=== PATIENT | male | born 1965 | race Caucasian/White ===

== ENCOUNTER 2016-03-25 15:45 | Emergency (ER) | payer OTHER ==
[2016-03-25 16:55] VITALS: BP 134/86
--- NOTE | 2016-03-25 17:10 | UC ---
Respiratory Complaint HPI - HPI Summary HPI Summary: shoveling snow 3 or 4 days ago, afterwards felt a cold coming on. Worsening cough, hurts ribcage to cough. He said "chest pain" on triage, but he says it is pleuritic and more related to coughing. Phlegm is yellow. Sinus congestion. Malaise, fatigue, slept 14 hrs yesterday. Fever today. Smoker. Chronic narcotic use for back pain. 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 - Onset/Duration: Gradual Onset, Lasting Days Timing: Constant Severity Initially: Mild Severity Currently: Mild Character: Sputum Description: - yellow Aggravating Factors: Exertion, Recumbent Position Alleviating Factors: Nothing Associated Signs And Symptoms: Positive: Dyspnea, Fever, Chills, URI, Nasal Congestion, Hoarseness - Risk Factors Pulmonary Embolism Risk Factors: Smoking Cardiac Risk Factors: Smoking Tuberculosis Risk Factors: Smoking - Allergies/Home Medications Allergies/Adverse Reactions: Allergies Allergy/AdvReac Type Severity Reaction Status Date / Time Acetaminophen [From Vicodin] Allergy Tachycardia Verified 03/25/16 16:43 Hydrocodone [From Vicodin] Allergy Tachycardia Verified 03/25/16 16:43 Methadone Allergy See Comment Verified 03/25/16 16:43 Home Medications: Home Medications Meclizine TAB* [Antivert 12.5 TAB*] 1 tab DAILY 03/25/16 [History Confirmed ] Meloxicam [Vivlodex] 03/25/16 [History] Methocarbamol TAB* [Robaxin TAB*] 1 tab TID 03/25/16 [History Confirmed 03/25/16 ] Sennosides [Senna-Lax] 1 tab 03/25/16 [History] PMH/Surg Hx/FS Hx/Imm Hx Endocrine History Of: Denies: Diabetes Cardiovascular History Of: Denies: Hypertension, Pacemaker/ICD Respiratory History Of: Reports: Asthma GI/ History Of: Denies: Renal Disease - Surgical History Surgical History: None - Family History Known Family History: Positive: Cardiac Disease, Hypertension - Social History Occupation: Employed Full-time Lives: With Family Alcohol Use: None Substance Use Type: Prescribed Smoking Status (MU): Heavy Every Day Tobacco Smoker Type: Cigarettes Amount Used/How Often: 1/2 ppd Household Exposure Type: Cigarettes - Immunization History Most Recent Influenza Vaccination: doesn't get Review of Systems Constitutional: Fever, Chills, Fatigue Skin: Negative Eyes: Negative ENT: Sore Throat, Nasal Discharge Respiratory: Shortness Of Breath, Cough Cardiovascular: Negative Gastrointestinal: Negative Genitourinary: Negative Motor: Negative Neurovascular: Negative Musculoskeletal: Myalgia Neurological: Negative Psychological: Negative All Other Systems Reviewed And Are Negative: Yes Physical Exam Triage Information Reviewed: Yes Appearance: Well-Appearing, No Pain Distress, Well-Nourished Vital Signs: Initial Vital Signs Temp 99.7 F 03/25/16 16:48 Pulse 103 03/25/16 16:48 Resp 18 03/25/16 16:48 BP 134/86 03/25/16 16:48 Pulse Ox 99 03/25/16 16:48 Vital Signs Reviewed: Yes Eye Exam: Normal ENT: Positive: Hearing grossly normal, Pharynx normal, Nasal congestion, Nasal drainage, TMs normal. Negative: Tonsillar swelling, Tonsillar exudate, Trismus , Muffled/hoarse voice Neck exam: Normal Neck: Positive: Supple Respiratory Exam: Normal Respiratory: Positive: No respiratory distress, No accessory muscle use, Rhonchi - harsh productive cough. Negative: Respiratory distress Cardiovascular Exam: Normal Cardiovascular: Positive: RRR, No Murmur, Pulses Normal, Brisk Capillary Refill Musculoskeletal Exam: Normal Neurological Exam: Normal Psychological Exam: Normal Skin Exam: Normal UC Diagnostic Evaluation - Laboratory O2 Sat by Pulse Oximetry: 99 Diagnostic Studies Comment: ekg shows LVH, no acute ischemia Respiratory Course/Dx - Differential Dx/Diagnosis Differential Diagnosis/HQI/PQRI: Bronchitis, Lower Resp Infection, Other - URI Provider Diagnoses: bronchitis Discharge - Discharge Plan Condition: Stable Disposition: HOME Prescriptions: Benzonatate CAP* [Tessalon CAP*] 100 mg PO TID PRN #30 cap PRN Reason: Cough Sulfamethox/Trimethoprim DS* [Bactrim DS 800/160 TAB*] 1 tab PO BID #20 tab Patient Education Materials: How to Stop Smoking (ED), Acute Bronchitis (ED) Referrals: Lino Amezcua MD [Primary Care Provider] -
== END 2016-03-25 17:17 | disposition home or self-care (01) ==
LOC: UCEAST 15:45
DX: J40 Bronchitis, not specified as acute or chronic (principal); R07.9 Chest pain, unspecified; F17.210 Nicotine dependence, cigarettes, uncomplicated; Z88.5 Allergy status to narcotic agent; Z88.8 Allergy status to other drugs, medicaments and biological substances
CPT/HCPCS: 93005; 99212; G0463

== ENCOUNTER 2017-03-08 14:36 | Emergency (ER) | payer OTHER ==
--- NOTE | 2017-03-08 16:10 | ED ---
Back Pain - HPI Summary HPI Summary: 51 male presents to ED with complaints of chronic low back pain that was exacerbated this morning when arguing with his girlfriend. Patient states he was laying in bed got up too fast and twisted because he was upset and then almost fell. Patient has chronic back and neck pain and uses assistance when walking. See PCP and pain clinic for choric pain management, states his medication is out and it gets refilled tomorrow. He has not taken anything for his back pain today. Denies any urinary or abdominal pain/symptoms. Normal bowel movements. No saddle anesthesia, bladder/bowel incontinence, weakness, numbness/tingling. No other complaints or PMHx. States pain does radiate down his legs, worse on right and this does occur frequently with his chronic back pain. - History of Current Complaint Chief Complaint: EDBackInjuryPain Stated Complaint: BACK PAIN Time Seen by Provider: 03/08/17 14:54 Hx Obtained From: Patient Onset/Duration: Sudden Onset, Still Present Onset/Duration: Started Hours Ago, Traumatic - acute on chronic, Still Present Timing: Constant Back Pain Location: Is Discrete @ - Lumbar region "L5" Severity Initially: Moderate Severity Currently: Moderate Pain Intensity: 8 Pain Scale Used: 0-10 Numeric Character: Sharp, Aching Aggravating Symptom(s): Movement, Walking Alleviating Symptom(s): Rest, Position Associated Signs And Symptoms: Positive: Pain with Weight Bearing. Negative: Swelling, Redness, Bruising, Weakness, Numbness, Tingling, Abdominal Pain, Bladder Incontinence, Bowel Incontinence, Weight Loss - Allergies/Home Medications Allergies/Adverse Reactions: Allergies Allergy/AdvReac Type Severity Reaction Status Date / Time MS Acetaminophen Allergy Tachycardia Verified 03/25/16 16:43 [From Vicodin] MS Hydrocodone [From Vicodin] Allergy Tachycardia Verified 03/25/16 16:43 MS Methadone [Methadone] Allergy See Comment Verified 03/25/16 16:43 PMH/Surg Hx/FS Hx/Imm Hx Endocrine/Hematology History: Denies: Hx Diabetes, Hx Thyroid Disease Cardiovascular History: Denies: Hx Hypertension, Hx Pacemaker/ICD Respiratory History: Reports: Hx Asthma Denies: Hx Chronic Obstructive Pulmonary Disease (COPD) GI History: Denies: Hx Ulcer History: Denies: Hx Renal Disease Musculoskeletal History: Reports: Hx Back Problems Sensory History: Reports: Hx Hearing Aid Psychiatric History: Reports: Hx Substance Abuse Denies: Hx Panic Disorder - Surgical History Surgery Procedure, Year, and Place: n/a - Immunization History Date of Tetanus Vaccine: unknown Date of Influenza Vaccine: NO Immunizations Up to Date: Yes Infectious Disease History: No Infectious Disease History: Denies: Hx Hepatitis, Hx Human Immunodeficiency Virus (HIV), History Other Infectious Disease, Traveled Outside the [place] in Last 30 Days - Family History Known Family History: Positive: Cardiac Disease, Hypertension - Social History Alcohol Use: None Substance Use Type: Reports: Prescribed Hx Tobacco Use: Yes Smoking Status (MU): Heavy Every Day Tobacco Smoker Type: Cigarettes Amount Used/How Often: 1/2 ppd Review of Systems Constitutional: Negative Cardiovascular: Negative Respiratory: Negative Gastrointestinal: Negative Genitourinary: Negative Positive: Arthralgia, Myalgia - low back Skin: Negative Neurological: Negative All Other Systems Reviewed And Are Negative: Yes Physical Exam Triage Information Reviewed: Yes Vital Signs On Initial Exam: Initial Vitals Temp Pulse Resp BP Pulse Ox 98.6 F 106 20 160/90 99 03/08/17 14:47 03/08/17 14:47 03/08/17 14:47 03/08/17 14:47 03/08/17 14:47 Vital Signs Reviewed: Yes Appearance: Positive: Well-Appearing - ambulating with walker ot bathroom and changing position without difficulty, No Pain Distress, Well-Nourished Skin: Positive: Warm, Skin Color Reflects Adequate Perfusion, Dry. Negative: Cold, Numb, Cyanosis @, Pale, Erythema @ Head/Face: Positive: Normal Head/Face Inspection Neck: Positive: Supple, Nontender Respiratory/Lung Sounds: Positive: Clear to Auscultation, Breath Sounds Present. Negative: Rales, Rhonchi, Wheezes Cardiovascular: Positive: Normal, RRR, Pulses are Symmetrical in both Upper and Lower Extremities - 2+ radial and pedal. Negative: Murmur, Rub Abdomen Description: Positive: Nontender, No Organomegaly, Soft. Negative: CVA Tenderness (R), CVA Tenderness (L), Distended, Guarding, Hernia @ Bowel Sounds: Positive: Present Musculoskeletal: Positive: Normal, Strength/ROM Intact, Other - no obvious deformity, bruising, erythema or signs of trauma. Negative: Limited @, Interruption @, Abnormal @, Pain @ - non tender on palpation, only with certain movement and changing positions/walking, Edema Left, Edema Right Neurological: Positive: Normal, Sensory/Motor Intact, Alert, Oriented to Person Place, Time, CN Intact II-III, Reflexes Intact, Normal Gait - per patient's baseline Diagnostics - Vital Signs Vital Signs Temp Pulse Resp BP Pulse Ox 03/08/17 14:47 98.6 F 106 20 160/90 99 - Laboratory Lab Statement: Any lab studies that have been ordered have been reviewed, and results considered in the medical decision making process. Back Pain Course/Dx - Course Course Of Treatment: no acute trauma requiring imaging at this time appears to be acute strain on chronic, or exacerbation of chronic pain as patient is without pain medication. Patient had normal PE findings other than baseline findings. Ambulating without difficulty. Does not appear to be emergent etiology at this time. Pain medication given in ED. Has refilled medication from PCP/pain clinic tomorrow. Follow up with PCP/pain clinic. Aware of worsening signs and symptoms. No other concerns at this time per patients symptoms and HPI. - Diagnoses Differential Diagnosis/HQI/PQRI: Positive: Herniated Disc, Strain, Sprain Provider Diagnoses: Chronic back pain greater than 3 months duration Discharge - Discharge Plan Condition: Stable Disposition: HOME Patient Education Materials: Chronic Back Pain (ED) Referrals: Lino Amezcua MD [Primary Care Provider] - Additional Instructions: Take ibuprofen starting tomorrow as needed for pain along with already prescribed pain medication you are filling tomorrow. Apply heat during day, ice at night and heat in the morning. Rest and avoid strenuous exercise. Use walker and assistance for support. Follow up with PCP. Any new or worsening symptoms please seek medical attention promptly.
[2017-03-08] MEDS ORDERED: Ketorolac INJ* 30 MG/ML 1 ML VIAL IM ONE (16:30)
[2017-03-08] MEDS ORDERED: oxyCODONE TAB* 5 MG TAB PO ONE (16:38)
[2017-03-08 17:13] VITALS: BP 135/80
== END 2017-03-08 17:11 | disposition home or self-care (01) ==
LOC: ED 14:36
DX: M54.5 Low back pain (principal); G89.29 Other chronic pain; F17.210 Nicotine dependence, cigarettes, uncomplicated
CPT/HCPCS: 96372; 99282; A9270-GY; J1885

== ENCOUNTER 2017-06-12 23:57 | Emergency (ER) | payer OTHER ==
[2017-06-13] MEDS ORDERED: ALPRAZolam TAB* 0.5 MG PO ONE (00:29)
[2017-06-13] MEDS ORDERED: ALPRAZolam TAB* 0.5 MG ONE (00:33)
[2017-06-13 00:47] LABS: ABS Basophils 0.1 10^3/ul (0-0.2); ABS Eosinophils 0.3 10^3/ul (0-0.6); ABS Lymphocytes 2.5 10^3/ul (1.0-4.8); ABS Monocytes 0.7 10^3/ul (0-0.8); ABS Neutrophils 4.4 10^3/ul (1.5-7.7); ABS Nucleated RBC 0 10^3/ul; Eosinophil % 3.2 % (0-6); Hematocrit 43 % (42-52); Hemoglobin 14.8 g/dl (14.0-18.0); Lymphocyte % 31.3 % (25-47); Mean Corpuscular HGB Conc 35 g/dl (31-36); Mean Corpuscular Hemoglobin 32 pg (27-31); Mean Corpuscular Volume 93 fL (80-94); Mean Platelet Volume 8.2 um3 (7.4-10.4); Nucleated Red Blood Cells % 0; Platelet Count 255 10^3/ul (150-450); Red Cell Distribution Width 14 % (10.5-15); White Blood Count 7.9 10^3/ul (3.5-10.8)
[2017-06-13 01:03] LABS: EGFR Non-African American 78.2 (>60)
--- NOTE | 2017-06-13 01:40 | ED ---
Iris Quintana Rebecca, scribed for Cindy Bhardwaj MD on 06/13/17 at 0013 . Complex/Multi-Sys Presentation - HPI Summary HPI Summary: Pt is a 51 y/o M BIBA who presents to ED c/o CP. Pain began about 1 hour ago and is now resolved. Pain began after having an argument with his . Took 15 mg morphine PO at 2345 for chronic pain. Additionally notes anxiety. Denies any other symptoms. - History Of Current Complaint Chief Complaint: EDGeneral Time Seen by Provider: 06/13/17 00:10 Hx Obtained From: Patient Onset/Duration: Lasting Hours - Began 1 hour INTERNET RESEARCHER, Resolved Severity Currently: None Location: Pain At: - Chest Associated Signs And Symptoms: Positive: Chest Pain - resolved - Allergies/Home Medications Allergies/Adverse Reactions: Allergies Allergy/AdvReac Type Severity Reaction Status Date / Time acetaminophen [From Vicodin] Allergy Palpitation Verified 06/13/17 00:07 s hydrocodone [From Vicodin] Allergy Palpitation Verified 06/13/17 00:07 s methadone Allergy Unknown Verified 06/13/17 00:07 Reaction Details trazodone Allergy Dizziness Verified 06/13/17 00:07 PMH/Surg Hx/FS Hx/Imm Hx Endocrine/Hematology History: Denies: Hx Diabetes, Hx Thyroid Disease Cardiovascular History: Denies: Hx Hypertension, Hx Pacemaker/ICD Respiratory History: Reports: Hx Asthma Denies: Hx Chronic Obstructive Pulmonary Disease (COPD) GI History: Denies: Hx Ulcer History: Denies: Hx Renal Disease Musculoskeletal History: Reports: Hx Back Problems Sensory History: Reports: Hx Hearing Aid Psychiatric History: Reports: Hx Substance Abuse Denies: Hx Panic Disorder - Surgical History Surgery Procedure, Year, and Place: SKULL SURGERY A CHILD - Immunization History Date of Tetanus Vaccine: unknown Date of Influenza Vaccine: NO Infectious Disease History: No Infectious Disease History: Denies: Hx Hepatitis, Hx Human Immunodeficiency Virus (HIV), History Other Infectious Disease, Traveled Outside the [place] in Last 30 Days - Family History Known Family History: Positive: Cardiac Disease, Hypertension - Social History Alcohol Use: None Substance Use Type: Reports: None, Prescribed Hx Tobacco Use: Yes Smoking Status (MU): Light Every Day Tobacco Smoker Type: Cigarettes Amount Used/How Often: 1/2 ppd Review of Systems Negative: Fever Positive: Chest Pain Positive: Anxious All Other Systems Reviewed And Are Negative: Yes Physical Exam - Summary Physical Exam Summary: VITAL SIGNS: Reviewed. GENERAL: ~Patient is a well-developed and nourished male. Patient is not in any acute respiratory distress. HEAD AND FACE: No signs of trauma. No ecchymosis, hematomas or skull depressions. No sinus tenderness. EYES: PERRLA, EOMI x 2, No injected conjunctiva, no nystagmus. EARS: Hearing grossly intact. Ear canals and tympanic membranes are within normal limits. MOUTH: Oropharynx within normal limits. NECK: Supple, trachea is midline, no adenopathy, no JVD, no carotid bruit, no c- spine tenderness, neck with full ROM. CHEST: Symmetric, no tenderness at palpation LUNGS: Clear to auscultation bilaterally. No wheezing or crackles. CVS: Regular rate and rhythm, S1 and S2 present, no murmurs or gallops appreciated. EXTREMITIES: FROM in all major joints, no edema, no cyanosis or clubbing. NEURO: Alert and oriented x 3. No acute neurological deficits. Speech is normal and follows commands. SKIN: Dry and warm Psych: Patient seems anxious, impulsive and upset about the argument with his . Triage Information Reviewed: Yes Vital Signs On Initial Exam: Initial Vitals Temp Pulse Resp BP Pulse Ox 99.3 F 117 20 152/114 99 06/13/17 00:04 06/13/17 00:04 06/13/17 00:04 06/13/17 00:04 06/13/17 00:04 Vital Signs Reviewed: Yes Diagnostics - Vital Signs Vital Signs Temp Pulse Resp BP Pulse Ox 06/13/17 00:04 99.3 F 117 20 152/114 99 - Laboratory Result Diagrams: 06/13/17 00:36 06/13/17 00:36 Lab Statement: Any lab studies that have been ordered have been reviewed, and results considered in the medical decision making process. - EKG 0101 Cardiac Rate: NL - 92 bpm EKG Rhythm: Sinus Rhythm EKG Interpretation: Normal axis. Normal interval. No ischemic changes. Re-Evaluation - Re-Evaluation First Eval Re-Evaluation Time: 01:28 Change: Improved Complex Multi-Symp Course/Dx Assessment/Plan: Pt is a 51 y/o M BIBA who presents to ED c/o CP that began about 1 hour ago, now resolved. Pain began after having an argument with his . Took 15 mg morphine PO at 2345 for chronic pain. Additionally notes anxiety. Denies any other symptoms. Blood work was done. Troponin of 0.00. EKG is sinus rhythm. In the ED course, pt received Xanax which improved symptoms. Allergies noted. - Diagnoses Provider Diagnoses: Anxiety Discharge - Sign-Out/Discharge Documenting (check all that apply): Discharge/Admit/Transfer - Discharge - Discharge Plan Condition: Stable Disposition: HOME Patient Education Materials: Anxiety (ED) Referrals: Lino Amezcua MD [Primary Care Provider] - 3 Days Additional Instructions: RETURN TO EMERGENCY DEPARTMENT FOR RETURNING OR WORSENING SYMPTOMS. The documentation as recorded by the Iris manrique Rebecca accurately reflects the service I personally performed and the decisions made by , Cindy Bhardwaj MD.
[2017-06-13 01:49] VITALS: BP 127/87
== END 2017-06-13 01:35 | disposition home or self-care (01) ==
LOC: ED 23:57
DX: F41.9 Anxiety disorder, unspecified (principal); R07.9 Chest pain, unspecified; F17.210 Nicotine dependence, cigarettes, uncomplicated
CPT/HCPCS: 36415; 80053; 84484; 85025; 93005; 99283; A9270-GY

== ENCOUNTER 2017-06-19 21:01 | Emergency (ER) | payer OTHER ==
--- NOTE | 2017-06-19 21:41 | ED ---
Adult Trauma <Sean Reddy - Last Filed: 06/19/17 21:43> - HPI Summary HPI Summary: 51 male presents with right rib injury yesterday. He is chronically unsteady on his feet and that he slipped and landed on the right ribs. He states he has pain when he takes a deep breath. He states he has had a chronic cough for 2 weeks. He has a history of asthma. He denies any chest pain. Denies any shortness breath. He denies any other injury. He states that his ribs feel bruised. He hasn't taken anything for her symptoms. He also states that he wants to work with his primary to quit smoking. He denies any bowel pain. No head injury. No loss conscious. No nausea no vomiting. No fevers. He states that his fall was mechanical. He denies any chest pain or SOB prior to falling. He has history of COPD. - History of Current Complaint Pain Intensity: 6 <RobertSarika - Last Filed: 06/19/17 23:52> - History of Current Complaint Chief Complaint: EDChestWallPain Stated Complaint: RIB PAIN Time Seen by Provider: 06/19/17 21:13 - Allergy/Home Medications Allergies/Adverse Reactions: Allergies Allergy/AdvReac Type Severity Reaction Status Date / Time acetaminophen [From Vicodin] Allergy Palpitation Verified 06/19/17 21:33 s hydrocodone [From Vicodin] Allergy Palpitation Verified 06/19/17 21:33 s methadone Allergy Unknown Verified 06/19/17 21:33 Reaction Details trazodone Allergy Dizziness Verified 06/19/17 21:33 PMH/Surg Hx/FS Hx/Imm Hx Endocrine/Hematology History: Denies: Hx Diabetes, Hx Thyroid Disease Cardiovascular History: Denies: Hx Hypertension, Hx Pacemaker/ICD Respiratory History: Reports: Hx Asthma Denies: Hx Chronic Obstructive Pulmonary Disease (COPD) GI History: Denies: Hx Ulcer History: Denies: Hx Renal Disease Musculoskeletal History: Reports: Hx Back Problems Sensory History: Reports: Hx Hearing Aid Psychiatric History: Reports: Hx Substance Abuse Denies: Hx Panic Disorder - Surgical History Surgery Procedure, Year, and Place: SKULL SURGERY A CHILD - Immunization History Date of Tetanus Vaccine: unknown Date of Influenza Vaccine: NO Infectious Disease History: No Infectious Disease History: Denies: Hx Hepatitis, Hx Human Immunodeficiency Virus (HIV), History Other Infectious Disease, Traveled Outside the [place] in Last 30 Days - Family History Known Family History: Positive: Cardiac Disease, Hypertension - Social History Alcohol Use: None Substance Use Type: Reports: None Hx Tobacco Use: Yes Smoking Status (MU): Light Every Day Tobacco Smoker Type: Cigarettes Amount Used/How Often: 1/2 ppd <RobertSarika - Last Filed: 06/19/17 23:52> Review of Systems Negative: Fever Positive: Other - rib pain Positive: Cough. Negative: Shortness Of Breath Negative: Abdominal Pain All Other Systems Reviewed And Are Negative: Yes <RobertSarika - Last Filed: 06/19/17 23:52> Physical Exam Vital Signs On Initial Exam: Initial Vitals Temp Pulse Resp BP Pulse Ox 37.6 C 119 16 150/79 98 06/19/17 21:07 06/19/17 21:07 06/19/17 21:07 06/19/17 21:07 06/19/17 21:07 <Sean Reddy - Last Filed: 06/19/17 21:43> Triage Information Reviewed: Yes Vital Signs On Initial Exam: Initial Vitals Temp Pulse Resp BP Pulse Ox 99.7 F 119 16 150/79 98 06/19/17 21:07 06/19/17 21:07 06/19/17 21:07 06/19/17 21:07 06/19/17 21:07 Vital Signs Reviewed: Yes Appearance: Positive: Well-Appearing Skin: Positive: Warm, Dry Head/Face: Positive: Normal Head/Face Inspection Eyes: Positive: Normal, Conjunctiva Clear ENT: Positive: Pharynx normal Respiratory/Lung Sounds: Positive: Clear to Auscultation, Breath Sounds Present , Other - tenderness over right lateral ribs 8-10 Cardiovascular: Positive: Normal, RRR Abdomen Description: Positive: Nontender, Soft Bowel Sounds: Positive: Present Musculoskeletal: Positive: Normal Neurological: Positive: Normal Psychiatric: Positive: Normal <Sarika Jones - Last Filed: 06/19/17 23:52> Diagnostics - Vital Signs Vital Signs Temp Pulse Resp BP Pulse Ox 06/19/17 21:07 37.6 C 119 16 150/79 98 <Sean Reddy - Last Filed: 06/19/17 21:43> - Vital Signs Vital Signs Temp Pulse Resp BP Pulse Ox 06/19/17 21:07 99.7 F 119 16 150/79 98 - Radiology ribs Xray Interpretation: No Acute Changes Radiology Interpretation Completed By: ED Physician - CT chest CT Interpretation: Positive (See Comments) - no acute findings CT Interpretation Completed By: Radiologist <Sarika Jones - Last Filed: 06/19/17 23:52> Adult Trauma Course/Dx <Sean Reddy - Last Filed: 06/19/17 21:43> - Course Course Of Treatment: 51 male presents with right rib injury yesterday. He is chronically unsteady on his feet and that he slipped and landed on the right ribs. He states he has pain when he takes a deep breath. He states he has had a chronic cough for 2 weeks. He has a history of asthma. He denies any chest pain. Denies any shortness breath. He denies any other injury. He states that his ribs feel bruised. He hasn't taken anything for her symptoms. He also states that he wants to work with his primary to quit smoking. He denies any bowel pain. No head injury. No loss conscious. No nausea no vomiting. No fevers. He states that his fall was mechanical. He denies any chest pain or SOB prior to falling. on exam has tenderness right ribs 8-10 on lateral. no contusion noted. lungs CTA. ribs xray no fracture. patient states that was told that was told has lung cancer via blood. with copd changes on xray will get CT. CT: no acute disease. will discharge with antibiotic, prednisone and inhaler for COPD changes and cough. told to follow up with primary. patient understand and agrees with plan. - Diagnoses Differential Diagnosis/HQI/PQRI: Positive: Contusion(s), Fracture, Other - pneumonia <Sarika Jones - Last Filed: 06/19/17 23:52> - Diagnoses Provider Diagnoses: Rib contusion, Bronchitis, COPD (chronic obstructive pulmonary disease) Discharge <Sean Reddy - Last Filed: 06/19/17 21:43> - Sign-Out/Discharge Documenting (check all that apply): Discharge/Admit/Transfer - Billing Disposition and Condition Condition: GOOD Disposition: HOME <Sarika Jones - Last Filed: 06/19/17 23:52> - Discharge Plan Condition: Good Disposition: HOME Prescriptions: Azithromycin TAB* [Zithromax TAB (Z-OLIMPIA) 250 mg #6 tabs] 250 mg PO DAILY #4 tab predniSONE TAB* [Deltasone TAB*] 50 mg PO DAILY #4 tab Patient Education Materials: Acute Bronchitis (ED), Rib Contusion (ED) Referrals: Lino Amezcua MD [Primary Care Provider] - Additional Instructions: Use inhaler up to two puffs every 4 hours for cough Take steroid once a day for 4 more days starting tomorrow Take antibiotic once daily starting tomorrow for 4 days Take ibuprofen for pain every 6 hours Return to ED if develop severe shortness of breath, worsening chest pain, or any new or worsening symptomsa
[2017-06-19] MEDS ORDERED: A lbuterol Hfa (PREPAK) 1 MDI - ED TAKE HOME DISPENSING ONLY INHH ONE (23:46)
[2017-06-19] MEDS ORDERED: Azithromycin TAB* 250 MG PO ONE (23:46)
[2017-06-19] MEDS ORDERED: predniSONE TAB* 20 MG PO ONE (23:46)
[2017-06-20 00:03] VITALS: BP 149/96
--- NOTE | 2017-06-20 07:43 | RAD ---
INDICATION: Right rib injury. COMPARISON: There are no prior studies available for comparison. TECHNIQUE: 5 views of the right ribs and an AP view of the chest were obtained. FINDINGS: No fracture or significant focal osseous abnormality is seen. The heart is within normal limits in size. The lungs are clear. There is no evidence for pneumothorax or pleural effusion. IMPRESSION: NO EVIDENCE FOR FRACTURE.
--- NOTE | 2017-06-20 07:49 | RAD ---
INDICATION: Right-sided rib pain. COMPARISON: Correlation is made with a prior x-ray study of the ribs of the same date. TECHNIQUE: A CT scan of the chest was performed without intravenous contrast. Contiguous axial sections were obtained from the lung apices through the lung bases. Images were reconstructed in the coronal and sagittal planes. FINDINGS: There is mild bilateral apical paraseptal emphysematous changes present. The lungs are clear. No pleural effusion or pneumothorax is seen. No significant enlarged mediastinal or hilar lymph nodes are seen. The heart is within normal limits in size. No pericardial effusion is present. The thoracic aorta is normal in caliber. No fracture is seen. The anterior aspect of the lower ribs are not completely included on this study. IMPRESSION: NO EVIDENCE FOR ACUTE FINDING.
== END 2017-06-20 00:02 | disposition home or self-care (01) ==
LOC: ED 21:01
DX: S20.20XA Contusion of thorax, unspecified, initial encounter (principal); W01.0XXA Fall on same level from slipping, tripping and stumbling without subsequent striking against object, initial encounter; Y93.9 Activity, unspecified; Y92.9 Unspecified place or not applicable; J44.9 Chronic obstructive pulmonary disease, unspecified; Z88.6 Allergy status to analgesic agent; Z88.5 Allergy status to narcotic agent; F17.210 Nicotine dependence, cigarettes, uncomplicated
CPT/HCPCS: 71250; 99282; A9270-GY; J7512

== ENCOUNTER 2017-07-30 18:27 | Emergency (ER) | payer OTHER ==
[2017-07-30 18:37] VITALS: BP 141/100
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
[2017-07-30] MEDS ORDERED: Nystatin SUSPENSION* 100000 UNITS/ML 5 ML UDC PO ONE (19:02)
== END 2017-07-30 19:22 | disposition home or self-care (01) ==
LOC: UCEAST 18:27
DX: B37.0 Candidal stomatitis (principal); R03.0 Elevated blood-pressure reading, without diagnosis of hypertension; F17.210 Nicotine dependence, cigarettes, uncomplicated; J44.9 Chronic obstructive pulmonary disease, unspecified; J02.9 Acute pharyngitis, unspecified; Z88.5 Allergy status to narcotic agent; Z88.8 Allergy status to other drugs, medicaments and biological substances
CPT/HCPCS: 99212; A9270-GY; G0463

== ENCOUNTER 2017-08-13 01:26 | Emergency (ER) | payer OTHER ==
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
[2017-08-13 02:17] VITALS: BP 140/81
== END 2017-08-13 02:15 | disposition home or self-care (01) ==
LOC: ED 01:26
DX: M54.2 Cervicalgia (principal); F17.210 Nicotine dependence, cigarettes, uncomplicated; Y09 Assault by unspecified means
CPT/HCPCS: 99282

== ENCOUNTER 2017-08-13 03:25 | Emergency (ER) | payer OTHER ==
[2017-08-13] MEDS ORDERED: Meclizine TAB* 12.5 MG PO ONE (03:46)
--- NOTE | 2017-08-13 04:35 | ED ---
Lucrecia Quintana Emily, scribed for Cindy Bhardwaj MD on 08/13/17 at 0347 . Dizziness - HPI Summary HPI Summary: This patient is a 51 year old M presenting to [facility] with a chief complaint of dizziness that began [employer]. The patient rates the pain 0/10 in severity. Symptoms aggravated by nothing. Symptoms alleviated by nothing. Patient denies nausea. Pt reports he has chronic vertigo and takes meclizine. Pt was discharged from the ED earlier today. - History Of Current Complaint Chief Complaint: EDDizziness Stated Complaint: DIZZINESS Time Seen by Provider: 08/13/17 03:35 Hx Obtained From: Patient Onset/Duration: Still Present Timing: Constant Severity Initially: Mild Severity Currently: Mild Character: Room Spinning Aggravating Factor(s): Nothing Alleviating Factor(s): Nothing Associated Signs And Symptoms: Negative: Nausea - Allergies/Home Medications Allergies/Adverse Reactions: Allergies Allergy/AdvReac Type Severity Reaction Status Date / Time acetaminophen [From Vicodin] Allergy Palpitation Verified 07/30/17 18:37 s hydrocodone [From Vicodin] Allergy Palpitation Verified 07/30/17 18:37 s methadone Allergy Unknown Verified 07/30/17 18:37 Reaction Details trazodone Allergy Dizziness Verified 07/30/17 18:37 PMH/Surg Hx/FS Hx/Imm Hx Previously Healthy: No Endocrine/Hematology History: Denies: Hx Diabetes, Hx Thyroid Disease Cardiovascular History: Denies: Hx Hypertension, Hx Pacemaker/ICD Respiratory History: Reports: Hx Asthma Denies: Hx Chronic Obstructive Pulmonary Disease (COPD) GI History: Denies: Hx Ulcer History: Denies: Hx Renal Disease Musculoskeletal History: Reports: Hx Back Problems Sensory History: Reports: Hx Hearing Aid Neurological History: Reports: Other Neuro Impairments/Disorders - Vertigo Psychiatric History: Reports: Hx Substance Abuse Denies: Hx Panic Disorder - Surgical History Surgery Procedure, Year, and Place: SKULL SURGERY A CHILD - Immunization History Date of Tetanus Vaccine: unknown Date of Influenza Vaccine: NO Infectious Disease History: No Infectious Disease History: Denies: Hx Hepatitis, Hx Human Immunodeficiency Virus (HIV), History Other Infectious Disease, Traveled Outside the [place] in Last 30 Days - Family History Known Family History: Positive: Cardiac Disease, Hypertension - Social History Occupation: Unemployed Lives: With Family Alcohol Use: None Hx Substance Use: No Substance Use Type: Reports: None Hx Tobacco Use: Yes Smoking Status (MU): Light Every Day Tobacco Smoker Type: Cigarettes Amount Used/How Often: 1/2 ppd Review of Systems Negative: Nausea Neurological: Other - Positive dizziness All Other Systems Reviewed And Are Negative: Yes Physical Exam - Summary Physical Exam Summary: VITAL SIGNS: Reviewed. GENERAL: Patient is a well-developed and nourished male who is lying comfortable in the stretcher. Patient is not in any acute respiratory distress. HEAD AND FACE: No signs of trauma. No ecchymosis, hematomas or skull depressions. No sinus tenderness. EYES: PERRLA, EOMI x 2, No injected conjunctiva, no nystagmus. EARS: Hearing grossly intact. Ear canals and tympanic membranes are within normal limits. MOUTH: Oropharynx within normal limits. NECK: Supple, trachea is midline, no adenopathy, no JVD, no carotid bruit, no c- spine tenderness, neck with full ROM. CHEST: Symmetric, no tenderness at palpation LUNGS: Clear to auscultation bilaterally. No wheezing or crackles. CVS: Regular rate and rhythm, S1 and S2 present, no murmurs or gallops appreciated. ABDOMEN: Soft, non-tender. No signs of distention. No rebound no guarding, and no masses palpated. Bowel sounds are normal. EXTREMITIES: FROM in all major joints, no edema, no cyanosis or clubbing. Pt has limping, but states this is his normal gait NEURO: Alert and oriented x 3. No acute neurological deficits. Speech is normal and follows commands. SKIN: Dry and warm Triage Information Reviewed: Yes Vital Signs On Initial Exam: Initial Vitals Temp Pulse Resp BP Pulse Ox 97.9 F 104 20 149/90 99 08/13/17 03:30 08/13/17 03:30 08/13/17 03:30 08/13/17 03:30 08/13/17 03:30 Vital Signs Reviewed: Yes Diagnostics - Vital Signs Vital Signs Temp Pulse Resp BP Pulse Ox 08/13/17 03:30 97.9 F 104 20 149/90 99 - Laboratory Lab Statement: Any lab studies that have been ordered have been reviewed, and results considered in the medical decision making process. Dizzy Course/Dx - Course Course Of Treatment: This patient is a 51 year old M presenting to [facility] with a chief complaint of dizziness that began [employer]. Patient denies nausea. Pt reports he has chronic vertigo and takes Meclizine. Physical Exam Findings: Pt has limping, but states this is his normal gait. In the ED course the patient was given Meclizine. Patient will be discharged with follow up from PCP. The patient is agreeable with this plan. - Diagnoses Provider Diagnoses: Vertigo Discharge - Sign-Out/Discharge Documenting (check all that apply): Discharge/Admit/Transfer - Discharge home - Discharge Plan Condition: Stable Disposition: HOME Patient Education Materials: Vertigo (ED) Referrals: Lino Amezcua MD [Primary Care Provider] - 2 Days Additional Instructions: RETURN TO THE EMERGENCY DEPARTMENT FOR NEW OR WORSENING SYMPTOMS The documentation as recorded by the Lucrecia manrique Emily accurately reflects the service I personally performed and the decisions made by me, Cindy Bhardwaj MD.
[2017-08-13 04:38] VITALS: BP 140/84
== END 2017-08-13 04:30 | disposition home or self-care (01) ==
LOC: ED 03:25
DX: R42 Dizziness and giddiness (principal); F17.210 Nicotine dependence, cigarettes, uncomplicated
CPT/HCPCS: 99281; A9270-GY

== ENCOUNTER 2017-10-27 18:48 | Emergency (ER) | payer OTHER ==
--- NOTE | 2017-10-27 21:36 | ED ---
Throat Pain/Nasal Congestion - HPI Summary HPI Summary: 51-year-old male presents with tongue pain for the 2 days. He states that he has a burning pain with white discharge on the tongue. Denies any tongue swelling. No chest pain or shortness breath. No potential new allergens. He states he's had this before and was treated with nystatin. He states that he uses an inhaler and often does not wash his mouth afterwards. he denies any fever. no rash. is a smoker. does not use chew tobacco. no history of HIV. - History of Current Complaint Chief Complaint: EDGeneral Time Seen by Provider: 10/27/17 21:33 - Allergies/Home Medications Allergies/Adverse Reactions: Allergies Allergy/AdvReac Type Severity Reaction Status Date / Time acetaminophen [From Vicodin] Allergy Palpitation Verified 10/27/17 18:54 s hydrocodone [From Vicodin] Allergy Palpitation Verified 10/27/17 18:54 s methadone Allergy Unknown Verified 10/27/17 18:54 Reaction Details trazodone Allergy Dizziness Verified 10/27/17 18:54 PMH/Surg Hx/FS Hx/Imm Hx Endocrine/Hematology History: Denies: Hx Diabetes, Hx Thyroid Disease Cardiovascular History: Denies: Hx Hypertension, Hx Pacemaker/ICD Respiratory History: Reports: Hx Asthma Denies: Hx Chronic Obstructive Pulmonary Disease (COPD) GI History: Denies: Hx Ulcer History: Denies: Hx Renal Disease Musculoskeletal History: Reports: Hx Back Problems Sensory History: Reports: Hx Hearing Aid Neurological History: Reports: Other Neuro Impairments/Disorders - Vertigo Psychiatric History: Reports: Hx Substance Abuse Denies: Hx Panic Disorder - Surgical History Surgery Procedure, Year, and Place: SKULL SURGERY A CHILD - Immunization History Date of Tetanus Vaccine: unknown Date of Influenza Vaccine: NO Infectious Disease History: No Infectious Disease History: Denies: Hx Hepatitis, Hx Human Immunodeficiency Virus (HIV), History Other Infectious Disease, Traveled Outside the [place] in Last 30 Days - Family History Known Family History: Positive: Cardiac Disease, Hypertension - Social History Alcohol Use: None Hx Substance Use: No Substance Use Type: Reports: None Hx Tobacco Use: Yes Smoking Status (MU): Light Every Day Tobacco Smoker Type: Cigarettes Amount Used/How Often: 1/2 ppd Review of Systems Negative: Fever Positive: Other - tongue pain Negative: Chest Pain Negative: Shortness Of Breath All Other Systems Reviewed And Are Negative: Yes Physical Exam Triage Information Reviewed: Yes Vital Signs On Initial Exam: Initial Vitals Temp Pulse Resp BP Pulse Ox 98.9 F 94 16 145/95 98 10/27/17 18:50 10/27/17 18:50 10/27/17 18:50 10/27/17 18:50 10/27/17 18:50 Vital Signs Reviewed: Yes Appearance: Positive: Well-Appearing Skin: Positive: Warm, Dry Head/Face: Positive: Normal Head/Face Inspection Eyes: Positive: Normal, EOMI, WYATT, Conjunctiva Clear ENT: Positive: Pharynx normal, TMs normal, Other - white discharge on tongue that can be scrapped off Neck: Positive: Supple, Nontender, No Lymphadenopathy Respiratory/Lung Sounds: Positive: Clear to Auscultation, Breath Sounds Present Cardiovascular: Positive: Normal, RRR Musculoskeletal: Positive: Normal Neurological: Positive: Normal Psychiatric: Positive: Normal Diagnostics - Vital Signs Vital Signs Temp Pulse Resp BP Pulse Ox 10/27/17 20:35 98.0 F 86 16 123/92 100 10/27/17 18:50 98.9 F 94 16 145/95 98 - Laboratory Lab Statement: Any lab studies that have been ordered have been reviewed, and results considered in the medical decision making process. EENT Course/Dx - Course Course Of Treatment: 51-year-old male presents with tongue pain for the 2 days. He states that he has a burning pain with white discharge on the tongue. Denies any tongue swelling. No chest pain or shortness breath. No potential new allergens. He states he's had this before and was treated with nystatin. He states that he uses an inhaler and often does not wash his mouth afterwards. he denies any fever. no rash. is a smoker. does not use chew tobacco. no history of HIV. On exam has white discharge that can be scraped off on tongue. Oral pharynx normal. We'll treat with Magic mouthwash with nystatin. Patient understands agrees with plan. - Differential Diagnoses Differential Diagnoses: Pharyngitis, Other - leukoplakia, thrush - Diagnoses Provider Diagnoses: Candidiasis of mouth Discharge - Sign-Out/Discharge Documenting (check all that apply): Patient Departure - Discharge Plan Condition: Good Disposition: HOME Prescriptions: Magic M W2 Skip/Maal/Nyst/Lido* 5 ml SWISH SWAL QID #200 ml Patient Education Materials: Oral Candidiasis (ED) Referrals: Lino Amezcua MD [Primary Care Provider] - Additional Instructions: use magic mouth wash 5ml four times a day until clears wash mouth after use inhalers Return to ED if develop any new or worsening symptoms - Billing Disposition and Condition Condition: GOOD Disposition: Home
[2017-10-27 22:47] VITALS: BP 139/78
== END 2017-10-27 21:40 | disposition home or self-care (01) ==
LOC: ED 18:48
DX: B37.0 Candidal stomatitis (principal); F17.210 Nicotine dependence, cigarettes, uncomplicated
CPT/HCPCS: 99282

== ENCOUNTER → 2017-11-29 17:19 | Emergency (ER) | payer OTHER ==
[~2017-11-29 17:19] MED LIST: Albuterol/Ipratropium NEB.SOL* Albuterol 2.5 MG/Ipratropium 0.5 MG 3 ML INH ONE; Azithromycin TAB* 250 MG PO ONE; Benzonatate CAP* 100 MG PO ONE; predniSONE TAB* 20 MG PO ONE
--- NOTE | 2017-11-29 17:54 | RAD ---
HISTORY: cough COMPARISONS: None VIEWS: 4: Frontal dual-energy and lateral views of the chest. FINDINGS: CARDIOMEDIASTINAL SILHOUETTE: The cardiomediastinal silhouette is normal. MAYA: The maya are normal. PLEURA: The costophrenic angles are sharp. No pleural abnormalities are noted. LUNG PARENCHYMA: There is hyperinflation with flattening of the diaphragm and expansion of the AP diameter of the chest. ABDOMEN: The upper abdomen is clear. There is no subphrenic gas. BONES AND SOFT TISSUES: Degenerative changes are noted along the spine. OTHER: None. IMPRESSION: HYPERINFLATION, CONSISTENT WITH COPD. NO ACTIVE CARDIOPULMONARY DISEASE.
[2017-11-29 18:55] LABS: ABS Basophils 0.1 10^3/ul (0-0.2); ABS Eosinophils 0.4 10^3/ul (0-0.6); ABS Lymphocytes 2.5 10^3/ul (1.0-4.8); ABS Monocytes 0.7 10^3/ul (0-0.8); ABS Neutrophils 5.3 10^3/ul (1.5-7.7); ABS Nucleated RBC 0 10^3/ul; Hematocrit 49 % (42-52); Hemoglobin 16.8 g/dl (14.0-18.0); Lymphocyte % 27.6 % (25-47); Mean Corpuscular HGB Conc 35 g/dl (31-36); Mean Corpuscular Hemoglobin 32 pg (27-31); Mean Corpuscular Volume 93 fL (80-94); Mean Platelet Volume 7.3 um3 (7.4-10.4); Nucleated Red Blood Cells % 0.1; Platelet Count 265 10^3/ul (150-450); Red Blood Count 5.25 10^6/ul (4.00-5.40); Red Cell Distribution Width 13 % (10.5-15); White Blood Count 8.9 10^3/ul (3.5-10.8)
[2017-11-29 19:13] LABS: EGFR Non-African American 73.6 (>60)
--- NOTE | 2017-11-29 19:15 | ED ---
Respiratory - HPI Summary HPI Summary: 52-year-old male presents with cough for the past 3 weeks. He states he has history of COPD. He states cough is productive. He admits occasional shortness of breath with cough. He denies any chest pain. he admits to occasional sore throat. Denies any bowel pain. No nausea or vomiting. No fevers or chills. Admits occasional sinus congestion. No headache. Has not been taking steriod medication as is concerned we'll get thrush. no fevers. - History of Current Complaint Chief Complaint: EDUpperRespComplaint Stated Complaint: COUGH/COPD/SOB Time Seen by Provider: 11/29/17 18:26 Pain Intensity: 8 - Allergy/Home Medications Allergies/Adverse Reactions: Allergies Allergy/AdvReac Type Severity Reaction Status Date / Time hydrocodone [From Vicodin] Allergy Palpitation Verified 11/29/17 19:02 s methadone Allergy Unknown Verified 11/29/17 19:02 Reaction Details trazodone Allergy Dizziness Verified 11/29/17 19:02 PMH/Surg Hx/FS Hx/Imm Hx Endocrine/Hematology History: Denies: Hx Diabetes, Hx Thyroid Disease Cardiovascular History: Denies: Hx Hypertension, Hx Pacemaker/ICD Respiratory History: Reports: Hx Asthma, Hx Chronic Obstructive Pulmonary Disease (COPD) GI History: Denies: Hx Ulcer History: Denies: Hx Renal Disease Musculoskeletal History: Reports: Hx Back Problems Sensory History: Reports: Hx Hearing Aid Neurological History: Reports: Other Neuro Impairments/Disorders - Vertigo Psychiatric History: Reports: Hx Substance Abuse Denies: Hx Panic Disorder - Surgical History Surgery Procedure, Year, and Place: SKULL SURGERY A CHILD - Immunization History Date of Tetanus Vaccine: unknown Date of Influenza Vaccine: NO Infectious Disease History: No Infectious Disease History: Denies: Hx Hepatitis, Hx Human Immunodeficiency Virus (HIV), History Other Infectious Disease, Traveled Outside the [place] in Last 30 Days - Family History Known Family History: Positive: Cardiac Disease, Hypertension - Social History Alcohol Use: None Hx Substance Use: No Substance Use Type: Reports: None Hx Tobacco Use: Yes Smoking Status (MU): Light Every Day Tobacco Smoker Type: Cigarettes Amount Used/How Often: 1/2 ppd Review of Systems Negative: Fever Negative: Chest Pain Positive: Cough. Negative: Shortness Of Breath All Other Systems Reviewed And Are Negative: Yes Physical Exam Triage Information Reviewed: Yes Vital Signs On Initial Exam: Initial Vitals Temp Pulse Resp BP Pulse Ox 98.1 F 107 18 123/89 97 11/29/17 17:21 11/29/17 17:21 11/29/17 17:21 11/29/17 17:21 11/29/17 17:21 Vital Signs Reviewed: Yes Appearance: Positive: Well-Appearing Skin: Positive: Warm, Dry Head/Face: Positive: Normal Head/Face Inspection Eyes: Positive: Normal, Conjunctiva Clear ENT: Positive: Normal ENT inspection, Pharynx normal, TMs normal Neck: Positive: Supple, Nontender, No Lymphadenopathy Respiratory/Lung Sounds: Positive: Breath Sounds Present, Decreased Breath Sounds Cardiovascular: Positive: Normal, RRR Abdomen Description: Positive: Nontender, Soft Bowel Sounds: Positive: Present Musculoskeletal: Positive: Normal Neurological: Positive: Normal Psychiatric: Positive: Normal Diagnostics - Vital Signs Vital Signs Temp Pulse Resp BP Pulse Ox 11/29/17 17:21 98.1 F 107 18 123/89 97 - Laboratory Lab Results: Lab Results 11/29/17 Range/Units 18:45 WBC 8.9 (3.5-10.8) 10^3/ul RBC 5.25 (4.00-5.40) 10^6/ul Hgb 16.8 (14.0-18.0) g/dl Hct 49 (42-52) % MCV 93 (80-94) fL MCH 32 H (27-31) pg MCHC 35 (31-36) g/dl RDW 13 (10.5-15) % Plt Count 265 (150-450) 10^3/ul MPV 7.3 L (7.4-10.4) um3 Neut % (Auto) 59.5 (38-83) % Lymph % (Auto) 27.6 (25-47) % [place] % (Auto) 8.0 H (0-7) % Eos % (Auto) 4.0 (0-6) % Baso % (Auto) 0.9 (0-2) % Absolute Neuts (auto) 5.3 (1.5-7.7) 10^3/ul Absolute Lymphs (auto) 2.5 (1.0-4.8) 10^3/ul Absolute Monos (auto) 0.7 (0-0.8) 10^3/ul Absolute Eos (auto) 0.4 (0-0.6) 10^3/ul Absolute Basos (auto) 0.1 (0-0.2) 10^3/ul Absolute Nucleated RBC 0 10^3/ul Nucleated RBC % 0.1 Result Diagrams: 11/29/17 18:45 11/29/17 18:45 Lab Statement: Any lab studies that have been ordered have been reviewed, and results considered in the medical decision making process. - Radiology chest Radiology Interpretation Completed By: Radiologist Summary of Radiographic Findings: copd Disposition - Course Course Of Treatment: 52-year-old male presents with cough for the past 3 weeks. He states he has history of COPD. He states cough is productive. He admits occasional shortness of breath with cough. He denies any chest pain. he admits to occasional sore throat. Denies any bowel pain. No nausea or vomiting. No fevers or chills. Admits occasional sinus congestion. No headache. Has not been taking steriod medication as is concerned we'll get thrush. On exam has decreased breath sounds heard. Chest x-ray just shows COPD. Labs within normal limits. We will add on steroid inhaler and Tessalon and Z-Olimpia. Told to follow with primary about getting a breathing machine. Patient understands agrees with plan. - Differential Dx - Cardiopulmonary Differential Diagnoses - Cardiopulmonary: Bronchitis, Exacerbation Of COPD, Lower Resp Infection - Diagnoses Provider Diagnoses: COPD (chronic obstructive pulmonary disease), Bronchitis Discharge - Sign-Out/Discharge Documenting (check all that apply): Patient Departure - Discharge Plan Condition: Good Disposition: HOME Prescriptions: Azithromycin TAB* [Zithromax TAB (Z-OLIMPIA) 250 mg #6 tabs] 250 mg PO DAILY #4 tab Benzonatate CAP* [Tessalon 100 MG CAP*] 100 mg PO TID #21 cap predniSONE TAB* [Deltasone TAB*] 50 mg PO DAILY #4 tab Patient Education Materials: Acute Bronchitis (ED) Referrals: Lino Amezcua MD [Primary Care Provider] - Additional Instructions: take azithromycin once a day for 4 days Take steroid once a day for 4 more days starting tomorrow take tessalon three times a day for cough Use inhaler as needed up to two puffs every 4 hours for cough and wheezing Take Tylenol for pain every 6 hours follow up with primary within 7 days Return to ED if develop severe shortness of breath, worsening chest pain, or any new or worsening symptoms - Billing Disposition and Condition Condition: GOOD Disposition: Home
[2017-11-29 19:49] VITALS: BP 150/93
== END | disposition home or self-care (01) ==
LOC: ED 17:19
DX: J44.9 Chronic obstructive pulmonary disease, unspecified (principal); J40 Bronchitis, not specified as acute or chronic; Z88.5 Allergy status to narcotic agent; F17.210 Nicotine dependence, cigarettes, uncomplicated
CPT/HCPCS: 36415; 71046; 80053; 83880; 85025; 99282; A9270-GY; J7512

== ENCOUNTER 2018-04-24 10:34 | Emergency (ER) | payer MEDICAID, OTHER ==
[2018-04-24] MEDS ORDERED: Meclizine TAB* 12.5 MG PO ONE (12:46)
[2018-04-24] MEDS ORDERED: NS 0.9% 1000 ML** 1,000 ML IV ONE (12:46)
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
[2018-04-24] MEDS ORDERED: Meclizine TAB* 12.5 MG ONE (13:02)
[2018-04-24 13:03] LABS: Hematocrit 50 % (36-46); Mean Corpuscular HGB Conc 34 g/dL (31-36); Mean Corpuscular Hemoglobin 31 pg (27-31); Mean Corpuscular Volume 92 fL (80-94); Mean Platelet Volume 7.1 fL (7.4-10.4); Platelet Count 314 10^3/uL (150-450); Red Blood Count 5.43 10^6 /uL (4.18-5.48); Red Cell Distribution Width 13 % (10.5-15); White Blood Count 21.8 10^3/uL (3.5-10.8)
[2018-04-24 13:22] LABS: ALT 27 U/L (7-52); Albumin 4.3 g/dL (3.2-5.2); Albumin/Globulin Ratio 1.5 (1-3); Alkaline Phosphatase 72 U/L (34-104); BUN/Creatinine Ratio 15.6 (8-20); Blood Urea Nitrogen 15 mg/dL (6-24); C Reactive Protein 1.38 mg/L (<8.01); CO2 Carbon Dioxide 23 mmol/L (22-32); Calcium 9.5 mg/dL (8.6-10.3); Chloride 100 mmol/L (101-111); Creatine Kinase 97 U/L (10-223); EGFR African American 98.8 (>60); EGFR Non-African American 81.6 (>60); Globulin 2.8 g/dL (2-4); Glucose 105 mg/dL (70-100); Magnesium 2.2 mg/dL (1.9-2.7); Sodium 133 mmol/L (135-145); Total Protein 7.1 g/dL (6.4-8.9)
[2018-04-24 13:23] LABS: Troponin I 0.01 ng/mL (<0.04)
[2018-04-24 13:33] LABS: Alcohol < 10 mg/dL (<10)
[2018-04-24 13:48] LABS: Anion Gap 10 mmol/L (2-11); TSH (Thyroid Stimulating Horm) 0.74 mcIU/mL (0.34-5.60)
[2018-04-24 14:03] LABS: ABS Basophils 0 10^3/ul (0-0.2); ABS Eosinophils 0.1 10^3/ul (0-0.6); ABS Lymphocytes 2.8 10^3/ul (1.0-4.8); ABS Monocytes 1.7 10^3/ul (0-0.8); ABS Neutrophils 17.2 10^3/ul (1.5-7.7); ABS Nucleated RBC 0 10^3/ul; Eosinophil % 0.6 %; Lymphocyte % 12.7 %; Nucleated Red Blood Cells % 0
[2018-04-24 14:30] LABS: Barbiturates Urine Screen None Detected (None Detect); Benzodiazepine Urine Screen None Detected (None Detect); Urine Cannabinoids Screen None Detected (None Detect)
[2018-04-24 14:45] LABS: Urine Appearance Clear; Urine Bacteria Absent (Absent); Urine Bilirubin Negative (Negative); Urine Blood 2+ (Negative); Urine Color Straw; Urine Glucose Negative (Negative); Urine Ketones Negative (Negative); Urine Nitrite Negative (Negative); Urine Protein Negative (Negative); Urine Red Blood Cell Absent (Absent); Urine Specific Gravity 1.003 (1.010-1.030); Urine Urobilinogen Negative (Negative); Urine White Blood Cell Absent (Absent)
[2018-04-24 15:54] LABS: Influenza A Molecular NEGATIVE (Negative); Influenza B Molecular NEGATIVE (Negative)
[2018-04-24 17:08] VITALS: BP 139/108
== END 2018-04-24 17:07 | disposition home or self-care (01) ==
LOC: ED 10:34
DX: R42 Dizziness and giddiness (principal); R51 Headache; R05 Cough; R11.2 Nausea with vomiting, unspecified; R50.9 Fever, unspecified; Z88.5 Allergy status to narcotic agent; Z82.49 Family history of ischemic heart disease and other diseases of the circulatory system; F17.210 Nicotine dependence, cigarettes, uncomplicated
CPT/HCPCS: 36415; 70450; 71046; 80053; 80307; 80320; 81003; 81015; 82550; 83605; 83735; 83880; 84443; 84484; 85025; 85048; 86140; 93005; 96361; 99283; A9270-GY; G0480

== ENCOUNTER 2024-01-25 12:57 | Inpatient (IN) ==
[2024-01-25] MEDS: Ondansetron 4 mg VIAL 2 MG/ML 2 ml VIAL IV ONE (13:28)
[2024-01-25 14:00] LABS: Hematocrit 32.3 % (38-53); Hemoglobin 10.3 g/dL (13.2-16.3); Mean Corpuscular Hemoglobin 28.2 pg (27-33); Mean Corpuscular Hgb Conc 31.9 g/dL (31-36); Mean Corpuscular Volume 88.7 fL (80-97); Red Blood Count 3.64 10^6/uL (4.06-5.63); Red Cell Distribution Width 20.6 % (12-17); White Blood Count 23.9 10^3/uL (3.6-10.2)
[2024-01-25] MEDS: Morphine 4 MG/ML VIAL (1 ml) IV ONE (14:26)
[2024-01-25 14:30] LABS: Albumin 2.4 g/dL (3.5-5.7); Albumin/Globulin Ratio 0.6 (1-3); Calcium 6.5 mg/dL (8.6-10.3); Creatinine, Serum 0.76 mg/dL (0.67-1.17); Potassium 3.3 mmol/L (3.5-5.0); Total Bilirubin 1.5 mg/dL (0.2-1.0); Total Protein 6.4 g/dL (6.4-8.9); eGFR CKD-EPI 102.9 (>60)
[2024-01-25] MEDS ORDERED: cefTRIAXone 2 GM ADDV.VIAL 2 GM in NS 0.9% 100 ml BAG 100 ML IV ONE (14:55)
[2024-01-25 15:08] LABS: High Sensitivity Troponin 1 Hr 161 pg/mL (<20)
[2024-01-25 15:19] LABS: ABS Lymphocytes 0.8 10^3/uL (1.0-4.8); ABS Monocytes 1.7 10^3/uL (0.0-1.1); ABS Neutrophils 21.5 10^3/uL (1.5-7.6); ABS Nucleated RBC 0.04 10^3/ul; Anisocytosis 1+; Lymphocyte % 3.3 %; Nucleated Red Blood Cells % 0.2 %/100WBC (0.0-0.8); Platelet Count Platelets clumped. 10^3/uL (150-450); Polychromasia 1+; Stomatocytes 1+; Target Cells 1+
[2024-01-25] MEDS: Iohexol 350 (CONTRAST) 500 ML MDV IV ONE (15:23)
[2024-01-25] MEDS: Azithromycin 500 mg/250 ml NS 500 MG/250 ML BAG IVPB ONE (15:36)
[2024-01-25] MEDS: NS 0.9% 1000 ml BAG 1,000 ML IV SCH (16:56)
[2024-01-25] MEDS: cefTRIAXone 2 gm/50 mL D5W 2 GM/50 ML BAG IV ONE (16:58)
[2024-01-25] MEDS ORDERED: Albuterol HFA INHALER 8 gm MDI INH PRN (17:10)
[2024-01-25] MEDS ORDERED: Polyethylene Glycol 3350 17 GM PACKET PO PRN (17:52)
[2024-01-25] MEDS: NS 0.9% 1000 ml BAG 1,000 ML IV ONE (18:15)
[2024-01-25] MEDS: Ondansetron ODT 4 mg TAB 4 MG TAB PO PRN (18:45)
[2024-01-25] MEDS: Nystatin SUSPENSION 100,000 UNITS/ML UDC PO SCH (19:45)
[2024-01-26 06:32] LABS: Hematocrit 22.6 % (38-53); Hemoglobin 7.4 g/dL (13.2-16.3); Mean Corpuscular Hemoglobin 28.9 pg (27-33); Mean Corpuscular Hgb Conc 32.6 g/dL (31-36); Mean Corpuscular Volume 88.5 fL (80-97); Red Blood Count 2.55 10^6/uL (4.06-5.63); Red Cell Distribution Width 20.6 % (12-17); White Blood Count 21.1 10^3/uL (3.6-10.2)
[2024-01-26 07:16] LABS: Anion Gap 9 mmol/L (2-16); Blood Urea Nitrogen 16 mg/dL (6-24); CO2 Carbon Dioxide 26 mmol/L (22-32); Calcium 5.5 mg/dL (8.6-10.3); Chloride 102 mmol/L (101-111); Creatinine, Serum 0.63 mg/dL (0.67-1.17); Glucose 114 mg/dL (70-100); Magnesium 1.9 mg/dL (1.9-2.7); Potassium 3.2 mmol/L (3.5-5.0); Sodium 137 mmol/L (135-145); eGFR CKD-EPI 108.9 (>60)
[2024-01-26 07:32] LABS: ABS Basophils 0.2 10^3/uL (0.0-0.1); ABS Lymphocytes 0.7 10^3/uL (1.0-4.8); ABS Monocytes 1.4 10^3/uL (0.0-1.1); ABS Neutrophils 18.8 10^3/uL (1.5-7.6); ABS Nucleated RBC 0.01 10^3/ul; Eosinophil % 0.1 %; Lymphocyte % 3.3 %; Mean Platelet Volume 10.2 fL (7.5-11.2); Platelet Count 24 10^3/uL (150-450)
[2024-01-26] MEDS: CALCIUM GLUCONATE 1GM/50ML NS 1 GM/50 ML BAG IV ONE (09:18)
[2024-01-26] MEDS: CMCS: Venlafaxine 25 mg TAB (NF) PO SCH (09:23)
[2024-01-26] MEDS: Potassium Chlor 20 meq TAB.ER PO SCH (09:25)
[2024-01-26] MEDS: Potassium Chloride LIQUID 20 MEQ/15 ML LIQUID PO ONE (09:28)
[2024-01-26] MEDS: Lidocaine PATCH 5% PATCH TRANSDERM SCH (09:35)
[2024-01-26] MEDS: Fluticasone NASAL SPRAY 50MCG 16 gm SPRAY BTL INTRANASAL SCH (09:38)
[2024-01-26 09:55] LABS: Prealbumin < 3 mg/dL (18-38)
[2024-01-26] MEDS ORDERED: Albuterol HFA INHALER 8 gm MDI INH PRN (13:28)
[2024-01-26 13:37] LABS: % Iron Saturation 22 % (15-55); .Transferrin 81 mg/dL (203-362); Iron 25 ug/dL (50-212); Total Iron Binding Capacity 113 mcg/dL (250-450); Unsaturated Iron Binding 88 ug/dL
[2024-01-26 13:57] LABS: Folate 2.23 ng/mL (5.90-24.80)
[2024-01-26 13:58] LABS: Vitamin B12 > 1450 pg/mL (180-914)
[2024-01-26] MEDS: cefTRIAXone 1 gm/50 mL D5W 1 GM/50 ML BAG IV ONE (14:45)
[2024-01-26] MEDS: Azithromycin 250 MG in NS 0.9% 250 ml 250 ML IVPB SCH (16:24)
[2024-01-26] MEDS: Famotidine IV 10 MG/ML 2 ml VIAL (20 mg) IV SLOW PU SCH (17:23)
[2024-01-26 17:59] LABS: Platelet Count 16 10^3/uL (150-450)
[2024-01-26 18:00] LABS: ABS Basophils 0.1 10^3/uL (0.0-0.1); ABS Lymphocytes 0.9 10^3/uL (1.0-4.8); ABS Monocytes 1.3 10^3/uL (0.0-1.1); ABS Neutrophils 22.9 10^3/uL (1.5-7.6); ABS Nucleated RBC 0.01 10^3/ul; Eosinophil % 0.1 %; Hematocrit 26.9 % (38-53); Hemoglobin 8.8 g/dL (13.2-16.3); Lymphocyte % 3.6 %; Mean Corpuscular Hemoglobin 29.4 pg (27-33); Mean Corpuscular Hgb Conc 32.7 g/dL (31-36); Red Blood Count 2.99 10^6/uL (4.06-5.63); Red Cell Distribution Width 19.3 % (12-17); White Blood Count 25.2 10^3/uL (3.6-10.2)
[2024-01-26 19:12] LABS: C Reactive Protein 291.78 mg/L (<8.01)
[2024-01-26] MEDS ORDERED: Famotidine IV 10 MG/ML 2 ml VIAL (20 mg) IV SLOW PU SCH (21:00)
[2024-01-26] MEDS: Calcium/Vitamin D TAB 250/125 TAB PO SCH (22:02)
[2024-01-27] MEDS: Al Hydrox/Mg Hydrox/Simet LIQ 30 ML UDC PO PRN (06:19)
[2024-01-27 06:46] LABS: ABS Basophils 0.2 10^3/uL (0.0-0.1); ABS Lymphocytes 0.7 10^3/uL (1.0-4.8); ABS Monocytes 1.4 10^3/uL (0.0-1.1); ABS Neutrophils 25.4 10^3/uL (1.5-7.6); Eosinophil % 0.1 %; Hematocrit 27.6 % (38-53); Lymphocyte % 2.7 %; Mean Corpuscular Hemoglobin 29.5 pg (27-33); Mean Corpuscular Hgb Conc 32.7 g/dL (31-36); Mean Platelet Volume 9.7 fL (7.5-11.2); Platelet Count 17 10^3/uL (150-450); Red Blood Count 3.07 10^6/uL (4.06-5.63); Red Cell Distribution Width 18.8 % (12-17); White Blood Count 27.8 10^3/uL (3.6-10.2)
[2024-01-27 07:18] LABS: ALT 9 U/L (7-52); AST 28 U/L (13-39); Albumin/Globulin Ratio 0.6 (1-3); Alkaline Phosphatase 174 U/L (35-149); Anion Gap 11 mmol/L (2-16); Blood Urea Nitrogen 14 mg/dL (6-24); CO2 Carbon Dioxide 26 mmol/L (22-32); Calcium 5.9 mg/dL (8.6-10.3); Chloride 101 mmol/L (101-111); Creatinine, Serum 0.51 mg/dL (0.67-1.17); Globulin 3.2 g/dL (2-4); Glucose 91 mg/dL (70-100); Potassium 3.1 mmol/L (3.5-5.0); Sodium 138 mmol/L (135-145); Total Bilirubin 1.2 mg/dL (0.2-1.0); Total Protein 5.2 g/dL (6.4-8.9); eGFR CKD-EPI 116.1 (>60)
[2024-01-27] MEDS: Potassium Chloride LIQUID 20 MEQ/15 ML LIQUID PO ONE (09:43)
[2024-01-27] MEDS: Calcium Carbonate LIQ 1,250 mg/5 ml UDC PO SCH (09:54)
[2024-01-27] MEDS: Potassium Chlor 10 meq TAB PO SCH (10:59)
[2024-01-27 12:00] LABS: TSH Ultra Thyroid Stim Horm < 0.01 mcIU/mL (0.34-5.60)
[2024-01-27 12:04] LABS: Free T4 1.29 ng/dL (0.61-1.12)
[2024-01-27] MEDS ORDERED: Potassium Chloride LIQUID 20 MEQ/15 ML LIQUID PO ONE (14:00)
[2024-01-27] MEDS ORDERED: NS 0.9% 1000 ml BAG 1,000 ML IV SCH (19:00)
[2024-01-27] MEDS: D5LR 1000 ml BAG 1,000 ML IV SCH (19:41)
[2024-01-27] MEDS: Potassium Chlor 10 meq TAB PO ONE (19:42)
[2024-01-28 07:59] LABS: Calcium 6.2 mg/dL (8.6-10.3); Creatinine, Serum 0.5 mg/dL (0.67-1.17); Magnesium 1.5 mg/dL (1.9-2.7); Potassium 3.8 mmol/L (3.5-5.0); eGFR CKD-EPI 116.8 (>60)
[2024-01-28 08:54] LABS: ABS Basophils 0.2 10^3/uL (0.0-0.1); ABS Lymphocytes 0.7 10^3/uL (1.0-4.8); ABS Monocytes 1.2 10^3/uL (0.0-1.1); ABS Neutrophils 25.3 10^3/uL (1.5-7.6); ABS Nucleated RBC 0.01 10^3/ul; Eosinophil % 0.1 %; Hematocrit 29.7 % (38-53); Hemoglobin 9.5 g/dL (13.2-16.3); Lymphocyte % 2.4 %; Mean Corpuscular Hemoglobin 29.2 pg (27-33); Mean Corpuscular Hgb Conc 32.1 g/dL (31-36); Mean Corpuscular Volume 90.7 fL (80-97); Mean Platelet Volume 10.5 fL (7.5-11.2); Platelet Count 14 10^3/uL (150-450); Red Blood Count 3.27 10^6/uL (4.06-5.63); Red Cell Distribution Width 19.8 % (12-17); White Blood Count 27.4 10^3/uL (3.6-10.2)
[2024-01-28] MEDS: Magnesium Sulf 4 GM/100 ML IV 4,000 MG/100 ML BAG IVPB ONE (09:42)
[2024-01-28] MEDS: Potassium Chlor 20 meq TAB.ER PO SCH (09:44)
[2024-01-28] MEDS ORDERED: Zosyn per Pharmacy NOTE FOLLOW UP SCH (13:00)
[2024-01-28] MEDS: Piperacillin/Tazobac 3.375 BAG 3.375 GM/100 ML BAG IV ONE (15:47)
[2024-01-28] MEDS: DOXYcycline 100 MG in NS 0.9% 250 ml 250 ML IVPB SCH (16:46)
[2024-01-28] MEDS: D5W 1/2 NS KCl 20 meq 1000 ml 1,000 ML IV SCH (20:14)
[2024-01-28] MEDS: ZOSYN 3.375 GM Q8H per EXTENDED INFUSION IV SCH (20:26)
[2024-01-29 07:27] LABS: Hematocrit 29.2 % (38-53); Hemoglobin 9.5 g/dL (13.2-16.3); Mean Corpuscular Hemoglobin 29.3 pg (27-33); Mean Corpuscular Hgb Conc 32.5 g/dL (31-36); Mean Corpuscular Volume 90.1 fL (80-97); Red Blood Count 3.24 10^6/uL (4.06-5.63); Red Cell Distribution Width 20.3 % (12-17); White Blood Count 29.4 10^3/uL (3.6-10.2)
[2024-01-29 07:49] LABS: ALT 10 U/L (7-52); AST 34 U/L (13-39); Albumin 1.8 g/dL (3.5-5.7); Albumin/Globulin Ratio 0.6 (1-3); Alkaline Phosphatase 232 U/L (35-149); Anion Gap 11 mmol/L (2-16); Blood Urea Nitrogen 10 mg/dL (6-24); CO2 Carbon Dioxide 22 mmol/L (22-32); Chloride 100 mmol/L (101-111); Creatinine, Serum 0.42 mg/dL (0.67-1.17); Globulin 3.2 g/dL (2-4); Glucose 114 mg/dL (70-100); Magnesium 1.6 mg/dL (1.9-2.7); Phosphorus < 1.0 mg/dL (2.5-5.0); Potassium 3.3 mmol/L (3.5-5.0); Sodium 133 mmol/L (135-145); Total Bilirubin 1.4 mg/dL (0.2-1.0); eGFR CKD-EPI 123.1 (>60)
[2024-01-29 08:35] LABS: ABS Lymphocytes 0.6 10^3/uL (1.0-4.8); ABS Monocytes 0.7 10^3/uL (0.0-1.1); ABS Neutrophils 28.1 10^3/uL (1.5-7.6); ABS Nucleated RBC 0.03 10^3/ul; Eosinophil % 0.1 %; Lymphocyte % 1.9 %; Mean Platelet Volume 10.1 fL (7.5-11.2); Nucleated Red Blood Cells % 0.1 %/100WBC (0.0-0.8); Platelet Count 13 10^3/uL (150-450)
[2024-01-29] MEDS: Potassium Phosphate IV 15 MMOL in NS 0.9% 250 ml 250 ML IVPB SCH (08:55)
[2024-01-29] MEDS: Albuterol/Ipratropium NEB.SOL (2.5/0.5 MG) 3 ML NEB.SOLN INH PRN (09:11)
[2024-01-29] MEDS: Magnesium Sulfate 2 gm BAG 2 GM/50 ML BAG IVPB ONE (09:39)
[2024-01-29] MEDS: Magnesium Sulfate IV 1GM/100ML 1 GM/100 ML BAG IV ONE (11:31)
[2024-01-29] MEDS: Saline FLUSH-CENTRAL 10 ML SYRINGE CENT\\PICC SCH (13:05)
[2024-01-29] MEDS: Albuterol/Ipratropium NEB.SOL (2.5/0.5 MG) 3 ML NEB.SOLN INH SCH (13:20)
[2024-01-29] MEDS: Morphine 2 MG/ML SYRINGE IV PRN (19:59)
[2024-01-29 20:12] LABS: ABS Basophils 0.1 10^3/uL (0.0-0.1); ABS Lymphocytes 0.4 10^3/uL (1.0-4.8); ABS Monocytes 0.5 10^3/uL (0.0-1.1); ABS Nucleated RBC 0.01 10^3/ul; Hematocrit 30.2 % (38-53); Hemoglobin 9.6 g/dL (13.2-16.3); Lymphocyte % 1.4 %; Mean Corpuscular Hemoglobin 29.1 pg (27-33); Mean Corpuscular Hgb Conc 31.9 g/dL (31-36); Mean Corpuscular Volume 91.4 fL (80-97); Platelet Count 12 10^3/uL (150-450); Red Cell Distribution Width 20.7 % (12-17); White Blood Count 32.2 10^3/uL (3.6-10.2)
[2024-01-29] MEDS: Potassium Phosphate IV 15 MMOL in NS 0.9% 250 ml 250 ML IVPB ONE (20:12)
[2024-01-29 20:30] LABS: Albumin 1.9 g/dL (3.5-5.7); Albumin/Globulin Ratio 0.6 (1-3); Calcium 6.3 mg/dL (8.6-10.3); Creatinine, Serum 0.56 mg/dL (0.67-1.17); Globulin 3.3 g/dL (2-4); Magnesium 2.2 mg/dL (1.9-2.7); Phosphorus 2.3 mg/dL (2.5-5.0); Potassium 3.8 mmol/L (3.5-5.0); Total Bilirubin 1.2 mg/dL (0.2-1.0); Total Protein 5.2 g/dL (6.4-8.9); eGFR CKD-EPI 112.8 (>60)
[2024-01-29] MEDS ORDERED: Vancomycin per Pharmacy 1 EA NOTE FOLLOW UP SCH (21:00)
[2024-01-29] MEDS: Lactated Ringers 1000 ml BAG 1,000 ML IV ONE (21:25)
[2024-01-29 21:31] LABS: PCO2 Arterial 25 mmHg (35-45); PO2 Arterial 118 mmHg (80-100)
[2024-01-29] MEDS: Vancomycin 750 MG in NS 0.9% 250 ML IVPB ONE (21:36)
[2024-01-29] MEDS: KCL 20 MEQ/100 ML IVPREMIX 20 MEQ/100 ML BAG IV ONE (21:57)
[2024-01-29] MEDS: Lactated Ringers 1000 ml BAG 1,000 ML IV SCH (22:16)
[2024-01-29] MEDS: Calcium Carbonate LIQ 1,250 mg/5 ml UDC PO ONE (22:30)
[2024-01-29] MEDS: Furosemide 20 mg/2 ml IV VIAL IV ONE (22:57)
[2024-01-29] MEDS: Furosemide 20 mg/2 ml IV VIAL ONE (23:03)
[2024-01-30] MEDS: Morphine 2 MG/ML SYRINGE IV ONE (00:03)
[2024-01-30] MEDS: LORazepam 2 mg VIAL 1 ml IM ONE (00:06)
[2024-01-30] MEDS ORDERED: Lorazepam PYXIS KEY PRN ×2 (00:12→01:07)
[2024-01-30] MEDS: Furosemide 40 mg/4 ml IV VIAL IV ONE (00:20)
[2024-01-30] MEDS: LORazepam 2 mg VIAL 1 ml IV PUSH PRN ×5 (00:26→02:44)
[2024-01-30] MEDS ORDERED: Morphine ORAL CONCENTRATE 5 MG/0.25 ML ORAL.SYRIN PO PRN (00:33)
[2024-01-30] MEDS: Morphine 2 MG/ML SYRINGE IV PRN (01:07)
[2024-01-30] MEDS: Scopolamine 1 mg/72hr PATCH TRANSDERM SCH (01:48)
[2024-01-30] MEDS: Scopolamine 1 mg/72hr PATCH ONE (03:26)
[2024-01-30 06:13] VITALS: BP 38/25
[2024-01-30] MEDS: Vancomycin 750 MG in NS 0.9% 250 ML IVPB SCH (06:15)
[2024-01-30] MEDS ORDERED: Vancomycin Trough Check NOTE FOLLOW UP ONE (20:30)
== END 2024-01-30 05:27 | disposition expired | DRG 136 ==
LOC: EDHOLD 12:57 → ED 12:57 → MED 20:10 → SUATTDRO 01-26 12:00 → ICU 01-29 20:43
PROVIDERS: ADMIT Internal Medicine; ATTEND Hospitalist